=== PATIENT | female | born 1960 | race Caucasian/White ===

== ENCOUNTER 2019-10-02 09:23 | Emergency (ER) | payer BC ==
[~2019-10-02] VITALS: Ht 167.7 cm; Wt 92.9 kg
--- NOTE | 2019-10-02 10:22 | ED General ---
General Chief Complaint: Neurological Problems Stated Complaint: L SIDE BODY NUMBNESS THAT LAST A FEW MINUTES Nursing Triage Note: PT REPORTS HAVING EPISODES OF HER RIGHT EYE HAVING A PAIN, THEN HER LEFT ARM FROM ELBOW DOWN AND LEFT LEG FROM KNEE DOWN HAVING NUMBNESS AND HEAVINESS. SHE HAS SEEN PCP THIS WEEK, HAS OP MRI/CAROTID DOPPLERS SCHEDULED ON 10/05. HAD ANOTHER EPISODE LAST NIGHT AT 2230, LEFT LOWER LEG STILL NUMB THIS AM. Nursing Sepsis Screen: No Definite Risk History of Present Illness Date Seen by Provider: Oct 02, 2019 Time Seen by Provider: 10:21 Initial Comments 59-year-old female presents with an episode of pain in her right eye then complains of pain in her left arm from the wrist up to the elbow then in her left leg from the ankle up to the knee. She describes it as that numbness and heaviness. Patient reports that she's had a couple previous episodes that are similar to this. Patient reports that the symptoms started last night. That her left lower leg still feels a little heavy in her arm feels a little heavy. Patient has an MRI and carotid studies scheduled for 10/06/2019. Patient symptoms last only a few minutes and resolved. The majority of the patient's symptoms are gone now except for a little feeling a heaviness in her lower extremity. Allergies and Home Medications Patient Home Medication List Home Medication List Reviewed: Yes Review of Systems Review of Systems Constitutional: No chills, No dizziness, No fever EENTM: see HPI Respiratory: No cough, No short of breath Cardiovascular: No chest pain, No palpitations Gastrointestinal: No nausea, No vomiting Genitourinary: no symptoms reported Musculoskeletal: see HPI Skin: see HPI Psychiatric/Neurological: See HPI Past Sjqqsoh-Swikze-Mtusap Hx Past Med/Social Hx: Reviewed Nursing Past Med/Soc Hx Patient Social History Alcohol Use: Denies Use Recreational Drug Use: No Smoking Status: Never a Smoker 2nd Hand Smoke Exposure: No Recent Foreign Travel: No Contact w/Someone Who Travel: No Recent Infectious Disease Expo: No Recent Hopitalizations: No Immunizations Up To Date Tetanus Booster (TDap): Unknown Date of Influenza Vaccine: Jul 04, 2019 Seasonal Allergies Seasonal Allergies: No Past Medical History Surgeries: No Respiratory: No High Cholesterol, Hypertension Neurological: No Genitourinary: No Gastrointestinal: No Musculoskeletal: No Endocrine: Yes Hyperthyroidism HEENT: No Cancer: No Psychosocial: No Integumentary: No Physical Exam Vital Signs Vital Signs - First Documented 10/02/19 10:00 Temp 36.9 Pulse 99 Resp 16 B/P (MAP) 173/100 (124) Pulse Ox 98 O2 Delivery Room Air Capillary Refill : Less Than 3 Seconds Height, Weight, BMI Height: '" Weight: lbs. oz. kg; 33.00 BMI Method: General Appearance: No Apparent Distress, WD/WN Eyes: Bilateral Eye Normal Inspection, Bilateral Eye PERRL, Bilateral Eye EOMI Neck: Non Tender, Supple Respiratory: Lungs Clear, Normal Breath Sounds Cardiovascular: Regular Rate, Rhythm, No Edema Gastrointestinal: Normal Bowel Sounds, No Organomegaly Back: Normal Inspection Extremity: Normal Capillary Refill, Normal Inspection, Normal Range of Motion Neurologic/Psychiatric: Alert, No Motor/Sensory Deficits, Normal Mood/Affect, oil analyst II-XII Norm as Tested Reflexes: 2+ Bicep (R), 2+ Tricep (R), 2+ Knee (R), 2+ Knee (L) Skin: Normal Color, Warm/Dry Comments NIH = 0 Progress/Results/Core Measures Suspected Sepsis Recent Fever Within 48 Hours: No Infection Criteria Present: None New/Unexplained Altered Menta: No Sepsis Screen: No Definite Risk SIRS Temperature: Pulse: 99 Respiratory Rate: 16 Laboratory Tests 10/02/19 12:06: White Blood Count 9.2 Blood Pressure 173 /100 Mean: 124 Laboratory Tests 10/02/19 12:06: Creatinine 0.86, INR Comment 1.0, Platelet Count 311, Total Bilirubin 0.3 Results/Orders Lab Results Laboratory Tests Test 10/02/19 12:06 Range/Units White Blood Count 9.2 4.3-11.0 10^3/uL Red Blood Count 5.29 4.35-5.85 10^6/uL Hemoglobin 13.7 11.5-16.0 G/DL Hematocrit 42 35-52 % Mean Corpuscular Volume 80 80-99 FL Mean Corpuscular Hemoglobin 26 25-34 PG Mean Corpuscular Hemoglobin Concent 32 32-36 G/DL Red Cell Distribution Width 14.0 10.0-14.5 % Platelet Count 311 130-400 10^3/uL Mean Platelet Volume 10.1 7.4-10.4 FL Neutrophils (%) (Auto) 85 H 42-75 % Lymphocytes (%) (Auto) 8 L 12-44 % Monocytes (%) (Auto) 6 0-12 % Eosinophils (%) (Auto) 1 0-10 % Basophils (%) (Auto) 0 0-10 % Neutrophils # (Auto) 7.8 1.8-7.8 X 10^3 Lymphocytes # (Auto) 0.7 L 1.0-4.0 X 10^3 Monocytes # (Auto) 0.6 0.0-1.0 X 10^3 Eosinophils # (Auto) 0.1 0.0-0.3 10^3/uL Basophils # (Auto) 0.0 0.0-0.1 10^3/uL Prothrombin Time 13.6 12.2-14.7 SEC INR Comment 1.0 0.8-1.4 Activated Partial Thromboplast Time 28 24-35 SEC Sodium Level 139 135-145 MMOL/L Potassium Level 3.4 L 3.6-5.0 MMOL/L Chloride Level 102 98-107 MMOL/L Carbon Dioxide Level 27 21-32 MMOL/L Anion Gap 10 5-14 MMOL/L Blood Urea Nitrogen 16 7-18 MG/DL Creatinine 0.86 0.60-1.30 MG/DL Estimat Glomerular Filtration Rate > 60 BUN/Creatinine Ratio 19 Glucose Level 99 70-105 MG/DL Calcium Level 9.7 8.5-10.1 MG/DL Corrected Calcium 9.3 8.5-10.1 MG/DL Total Bilirubin 0.3 0.1-1.0 MG/DL Aspartate Amino Transf (AST/SGOT) 17 5-34 U/L Alanine Aminotransferase (ALT/SGPT) 19 0-55 U/L Alkaline Phosphatase 126 40-136 U/L Total Protein 8.3 H 6.4-8.2 GM/DL Albumin 4.5 3.2-4.5 GM/DL My Orders Orders - HAN,GYPSY L DO Cbc With Automated Diff (10/02/19 10:32) Protime With Inr (10/02/19 10:32) Partial Thromboplastin Time (10/02/19 10:32) Comprehensive Metabolic Panel (10/02/19 10:32) Chest 1 View, Ap/Pa Only (10/02/19 10:32) Ekg Tracing (10/02/19 10:32) Vital Signs Stroke Patient Q15M (10/02/19 10:32) Ct Head Wo-R/O Stroke (10/02/19 10:32) Monitor-Rhythm Ecg Trace Only (10/02/19 10:32) Dysphagia Screening Tool (10/02/19 10:32) Lipid Panel (10/03/19 06:00) Thyroid Analyzer (10/02/19 10:56) Manual Differential (10/02/19 12:06) Vital Signs/I&O 10/02/19 10/02/19 10:00 12:45 Temp 36.9 Pulse 99 88 Resp 16 14 B/P (MAP) 173/100 (124) 148/82 Pulse Ox 98 97 O2 Delivery Room Air Capillary Refill : Less Than 3 Seconds Blood Pressure Mean: 124 ECG Initial ECG Impression Date: Oct 02, 2019 Initial ECG Impression Time: 10:44 Initial ECG Rate: 91 Initial ECG Rhythm: Normal Sinus Initial ECG Intervals: Normal Initial ECG Impression: Nonspecific Changes Diagnostic Imaging Comments NAME: ANDREW HASTINGS [facility] REC#: [id number] PT STATUS: REG ER : 1960 PHYSICIAN: GYPSY HAN DO ADMIT DATE: 10/02/19/ER Signed Date of Exam:10/02/19 CHEST 1 VIEW, AP/PA ONLY EXAMINATION: Chest radiograph, portable AP view. DATE: 10/02/2019 11:07 AM hours. INDICATION: 59-year-old female, chest pain. COMPARISON: None. FINDINGS: Heart size and mediastinal contours are unremarkable. There is no identified pneumothorax. There is no large pleural effusion. There is no identified focal airspace consolidation. IMPRESSION: No identified acute cardiopulmonary abnormality. NAME: ANDREW HASTINGS [facility] REC#: [id number] PT STATUS: REG ER : 1960 PHYSICIAN: GYPSY HAN DO ADMIT DATE: 10/02/19/ER Draft Date of Exam:10/02/19 CT HEAD WO-R/O STROKE PROCEDURE: CT head wo r/o stroke. TECHNIQUE: Multiple contiguous axial images were obtained through the brain without the use of intravenous contrast. Auto Exposure Controls were utilized during the CT exam to meet ALARA standards for radiation dose reduction. DATE: October 02, 2019. COMPARISON: None. INDICATION: 59-year-old female, right eye pain. FINDINGS: There are partially calcified nodules of the right and left frontal scalp on axial image 21 with the larger lesion on the right measuring up to approximately 1.8 cm in size. These are nonspecific. Correlation with dermatologic exam may be helpful. The visualized portions of the paranasal sinuses, mastoid air cells, and middle ears are well-aerated bilaterally. The ventricles and cerebral spinal fluid spaces are of normal size and configuration for the patient's age. There is no mass effect or midline shift. There is no acute intracranial hemorrhage. There is no abnormal extra-axial fluid collection. The orbits are incompletely imaged. The visualized portions of the globes and orbits are without identifiable abnormality. IMPRESSION: 1. No identified acute intracranial abnormality. 2. Partially visualized portions of the globes and orbits are without identifiable abnormality. 3. Partially calcified nodular foci on the right and left frontal scalp as above which are nonspecific on imaging. Recommend correlation with dermatologic exam Departure Impression Primary Impression: Paresthesia Disposition: 01 HOME, SELF-CARE Condition: Stable Departure-Patient Inst. Referrals: FIDEL RODRIGUEZ MD (PCP/Family) Primary Care Physician Patient Instructions: Paresthesias (DC), Transient Ischemic Attack (DC) Add. Discharge Instructions: Keep already scheduled MRI and carotid study for the fourth. Follow-up with your primary care provider as already scheduled Emergency department focuses on treating and ruling out life-threatening diseases. Whenever possible, a diagnosis is given. However, most patients are given an impression based on their history, physical exam, and workup during your brief time in the ER. Information about probable diagnosis and other educational material has been provided. Please take the time to read and understand this information. It is very important that you follow up with a physician as discussed during the visit today. Failure to adhere to your follow-up instructions may lead to severe disability, injury, or so please make sure to keep your appointments or obtain one as requested. Please keep in mind the emergency department is not designed to your primary care or "family doctor" and nonurgent issues are best evaluated by an outpatient physician All discharge instructions reviewed with patient and/or family. Voiced understleni calvillo. GYPSY HAN DO Oct 02, 2019 10:21
--- NOTE | 2019-10-02 11:14 | Diagnostic Imaging Report ---
EXAMINATION: Chest radiograph, portable AP view. DATE: 10/02/2019 11:07 AM hours. INDICATION: 59-year-old female, chest pain. COMPARISON: None. FINDINGS: Heart size and mediastinal contours are unremarkable. There is no identified pneumothorax. There is no large pleural effusion. There is no identified focal airspace consolidation. IMPRESSION: No identified acute cardiopulmonary abnormality. Dictated by: Dictated on workstation # [id number]
--- NOTE | 2019-10-02 11:16 | Diagnostic Imaging Report ---
PROCEDURE: CT head wo r/o stroke. TECHNIQUE: Multiple contiguous axial images were obtained through the brain without the use of intravenous contrast. Auto Exposure Controls were utilized during the CT exam to meet ALARA standards for radiation dose reduction. DATE: October 02, 2019. COMPARISON: None. INDICATION: 59-year-old female, right eye pain. FINDINGS: There are partially calcified nodules of the right and left frontal scalp on axial image 21 with the larger lesion on the right measuring up to approximately 1.8 cm in size. These are nonspecific. Correlation with dermatologic exam may be helpful. The visualized portions of the paranasal sinuses, mastoid air cells, and middle ears are well-aerated bilaterally. The ventricles and cerebral spinal fluid spaces are of normal size and configuration for the patient's age. There is no mass effect or midline shift. There is no acute intracranial hemorrhage. There is no abnormal extra-axial fluid collection. The orbits are incompletely imaged. The visualized portions of the globes and orbits are without identifiable abnormality. IMPRESSION: 1. No identified acute intracranial abnormality. 2. Partially visualized portions of the globes and orbits are without identifiable abnormality. 3. Partially calcified nodular foci on the right and left frontal scalp as above which are nonspecific on imaging. Recommend correlation with dermatologic exam. Dictated by: Dictated on workstation # [id number]
[2019-10-02 12:29] LABS: BASOPHILS % (AUTO) 0 % (0-10); EOSINOPHILS # (AUTO) 0.1 10^3/uL (0.0-0.3); EOSINOPHILS % (AUTO) 1 % (0-10); HEMATOCRIT 42 % (35-52); HEMOGLOBIN 13.7 G/DL (11.5-16.0); LYMPHOCYTES # (AUTO) 0.7 X 10^3 (1.0-4.0); LYMPHOCYTES % (AUTO) 8 % (12-44); MEAN CORPUSCULAR HEMOGLOBIN 26 PG (25-34); MEAN CORPUSCULAR HGB CONC 32 G/DL (32-36); MEAN CORPUSCULAR VOLUME 80 FL (80-99); MEAN PLATELET VOLUME 10.1 FL (7.4-10.4); MONOCYTES # (AUTO) 0.6 X 10^3 (0.0-1.0); MONOCYTES % (AUTO) 6 % (0-12); NEUTROPHILS # (AUTO) 7.8 X 10^3 (1.8-7.8); NEUTROPHILS % (AUTO) 85 % (42-75); PLATELET COUNT 311 10^3/uL (130-400); WHITE BLOOD COUNT 9.2 10^3/uL (4.3-11.0)
[2019-10-02 12:43] LABS: PROTHROMBIN TIME PATIENT 13.6 SEC (12.2-14.7)
[2019-10-02 12:45] VITALS: BP 148/82
[2019-10-02 12:52] LABS: ALANINE AMINOTRANSFERASE 19 U/L (0-55); ALBUMIN 4.5 GM/DL (3.2-4.5); ALKALINE PHOSPHATASE 126 U/L (40-136); BILIRUBIN,TOTAL 0.3 MG/DL (0.1-1.0); BUN/CREATININE RATIO 19; CALCIUM 9.7 MG/DL (8.5-10.1); CARBON DIOXIDE 27 MMOL/L (21-32); CHLORIDE 102 MMOL/L (98-107); CREATININE SERUM 0.86 MG/DL (0.60-1.30); GFR ESTIMATED > 60; GLUCOSE 99 MG/DL (70-105); POTASSIUM 3.4 MMOL/L (3.6-5.0); SODIUM 139 MMOL/L (135-145); TOTAL PROTEIN 8.3 GM/DL (6.4-8.2)
[2019-10-02 13:14] LABS: TSH (THYROID ANALYZER) 1.14 UIU/ML (0.35-4.94)
[2019-10-02 13:20] VITALS: BP 148/88
[2019-10-02 13:30] VITALS: BP 148/88
[2019-10-02 13:38] LABS: BAND NEUTROPHILS 1 %; EOSINOPHILS % (MANUAL) 1 %; LYMPHOCYTES % (MANUAL) 6 %; MONOCYTES % (MANUAL) 3 %; NEUTROPHILS % (MANUAL) 90 %
[2019-10-02 13:39] LABS: RBC MORPH NORMAL
== END 2019-10-02 13:22 | disposition home or self-care (01) ==
LOC: EDUNIT# 09:23 → ER 09:24
DX: R20.2 Paresthesia of skin (principal)
CPT/HCPCS: 36415; 70450; 71045; 80053; 84443; 85007; 85027; 85610; 85730; 93005; 93041

== ENCOUNTER → 2020-07-10 | Outpatient (CLI) | payer BC ==
--- NOTE | 2020-07-10 12:40 | Diagnostic Imaging Report ---
INDICATION: Routine screening. COMPARISON: 12/19/2017 and 09/01/2015. TECHNIQUE: 2D and 3D bilateral screening mammography was performed with CAD. FINDINGS: Scattered fibroglandular densities are identified bilaterally. The parenchymal pattern is stable. No mass or malignant appearing microcalcifications are seen. The axillae are unremarkable. IMPRESSION: No mammographic features suspicious for malignancy are identified. ACR BI-RADS Category 1: Negative. Result letter will be mailed to the patient. Note: At least 10% of breast cancer is not imaged by mammography. Dictated by: Dictated on workstation # [id number]
== END ==
LOC: RAD 07:30
PROVIDERS: ATTEND Obstetrics & Gynecology
DX: Z12.31 Encounter for screening mammogram for malignant neoplasm of breast (principal)
CPT/HCPCS: 77063; 77067

== ENCOUNTER → 2021-10-09 | Outpatient (CLI) | payer BC ==
--- NOTE | 2021-10-09 15:03 | Diagnostic Imaging Report ---
INDICATION: Routine screening. COMPARISON is made with prior mammograms from 07/10/2020 and 12/19/2017. 2-D and 3-D bilateral screening mammography was performed with CAD. Scattered fibroglandular densities are identified bilaterally. The parenchymal pattern is stable. No dominant mass or malignant-appearing microcalcifications are seen. Axillae are unremarkable. IMPRESSION: BI-RADS Category 1 No mammographic features suspicious for malignancy are identified. ACR BI-RADS Category 1: Negative. Result letter will be mailed to the patient. Note: At least 10% of breast cancer is not imaged by mammography. Dictated by: Dictated on workstation # [id number]
== END ==
LOC: RAD 13:00
PROVIDERS: ATTEND Obstetrics & Gynecology
DX: Z12.31 Encounter for screening mammogram for malignant neoplasm of breast (principal)
CPT/HCPCS: 77063; 77067

== ENCOUNTER → 2022-09-04 | Outpatient (CLI) | payer BC | LOC: CARD 12:41 | PROVIDERS: ATTEND Internal Medicine Infectious Disease | DX: B39.9 Histoplasmosis, unspecified (principal); Z79.2 Long term (current) use of antibiotics | CPT/HCPCS: 93005 ==

== ENCOUNTER → 2022-10-21 | Outpatient (CLI) | payer BC | LOC: CARD 13:28 | PROVIDERS: ATTEND Internal Medicine Infectious Disease | DX: B39.9 Histoplasmosis, unspecified (principal); Z79.2 Long term (current) use of antibiotics | CPT/HCPCS: 93005 ==

== ENCOUNTER → 2022-12-27 | Outpatient (CLI) | payer BC | LOC: CARD 10:25 | PROVIDERS: ATTEND Internal Medicine Infectious Disease | DX: B39.9 Histoplasmosis, unspecified (principal); Z79.2 Long term (current) use of antibiotics | CPT/HCPCS: 93005 ==

== ENCOUNTER → 2023-01-15 | Outpatient (CLI) | payer BC ==
--- NOTE | 2023-01-15 14:26 | Diagnostic Imaging Report ---
INDICATION: Routine screening. Comparison is made with prior mammogram 10/09/2021 and 07/10/2020. 2-D and 3-D bilateral screening mammography was performed with CAD. The current study was also evaluated with a Computer Aided Detection (CAD) system. Both breasts are heterogeneously dense, limiting the sensitivity of mammography. The parenchymal pattern is stable. No mass or malignant-appearing microcalcifications are identified. Axillae are unremarkable. IMPRESSION: BI-RADS Category 1 No mammographic features suspicious for malignancy are identified. ACR BI-RADS Category 1: Negative. Result letter will be mailed to the patient. Note: At least 10% of breast cancer is not imaged by mammography. Dictated by: Dictated on workstation # [id number]
== END ==
LOC: RAD 09:45
PROVIDERS: ATTEND Nurse Practitioner Women's Health
DX: Z12.31 Encounter for screening mammogram for malignant neoplasm of breast (principal)
CPT/HCPCS: 77063; 77067

== ENCOUNTER → 2023-03-06 | Outpatient (CLI) | payer BC | LOC: CARD 11:50 | PROVIDERS: ATTEND Internal Medicine Infectious Disease | DX: B39.9 Histoplasmosis, unspecified (principal); Z79.2 Long term (current) use of antibiotics | CPT/HCPCS: 93005 ==

== ENCOUNTER → 2023-05-16 | Outpatient (CLI) | payer BC | LOC: CARD 13:16 | PROVIDERS: ATTEND Internal Medicine Infectious Disease | DX: B39.9 Histoplasmosis, unspecified (principal); Z79.2 Long term (current) use of antibiotics | CPT/HCPCS: 93005 ==